=== PATIENT | female | born 2000 | race Caucasian/White ===

== ENCOUNTER 2020-10-21 15:41 | Emergency (ER) | payer OTHER, SELFPAY ==
[2020-10-21 15:57] VITALS: BP 121/82; PULSE 95; RESP 18; TEMP 36.6; O2SAT 96; BMI 39.8
[2020-10-21 16:39] VITALS: BP 138/78; PULSE 80; RESP 16; TEMP 36.1; O2SAT 100
--- NOTE | 2020-10-21 16:40 | PC.NURSE ---
PT ARRIVES TO POD, DENIES SI/HI AT THIS TIME. CALM & COOPERATIVE AT THIS TIME. AWAITING ED MD BUTLER.
[2020-10-21 17:02] LABS: Glucose Urine UA NEG (NEG); Leukocyte Esterase Urine 2+ (NEG); Nitrite Urine NEG (NEG); Specific Gravity - Urine 1.025 (1.005-1.025); Urine Blood TRACE (NEG); Urine Ketones NEG (NEG); Urine Protein NEG (NEG-TRACE)
[2020-10-21 17:03] LABS: Appearance Urine HAZY; Color Urine YELLOW
--- NOTE | 2020-10-21 17:18 | ED_ITS ---
HPI - Psych General Chief Complaint: Psychiatric Symptoms Stated Complaint: crisis Time Seen by Provider: 10/21/20 17:12 Source: patient Mode of arrival: ambulatory Limitations: no limitations History of Present Illness HPI Narrative: Patient comes to emergency room complaining of depression. Patient states that the depression is building up and she can not taking any longer. Patient states she is not suicidal or homicidal. Patient is not on any medications. 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 Patient states that at the age of 13, her mother decided that the patient did not need any therapy or medication. MD complaint: feels depressed Related Data Previous Rx's Medication Instructions Recorded hydroxyzine HCl 25 mg PO TID PRN #10 tab 10/21/20 nitrofurantoin monohyd/m-cryst 100 mg PO Q12H 7 Days #14 cap 10/21/20 [Macrobid] Allergies Allergy/AdvReac Type Severity Reaction Status Date / Time No Known Allergies Allergy Unverified 01/15/20 17:28 [No Known Allergies*] Review of Systems Review of Systems: Constitutional : No Weight loss, No Fever, No Chills, No Night Sweats, No Fatigue, No Malaise ENT/Mouth : No Hearing loss, No Ear Pain, No Nasal Congestion, No Sinus Pain, No Hoarseness, No sore throat, No Rhinorrhea, No Swallowing Difficulty Eyes: No Eye Pain, No Swelling, No Redness, No Foreign Body, No Discharge, No Vision Changes Cardiovascular : No Chest Pain, No SOB, No Dyspnea on Exertion, No Orthopnea, No Edema, No Palpitations Respiratory : No Cough, No Sputum, No Wheezing, No Smoke Exposure, No Dyspnea Gastrointestinal : No Nausea, No Vomiting, No Diarrhea, No Constipation, No abdominal Pain, No Hematochezia, No Melena Genitourinary : no irregular bleeding, No Dysuria, No Urinary Frequency, No Hematuria, No Urinary Incontinence, No Urgency, No Flank Pain, No Urinary Flow Changes, No Hesitancy Musculoskeletal : No joint pain, No Myalgias, No Joint Swelling Skin : No Skin Lesions, No rash Neuro : No Weakness, No Numbness, No Paresthesias, No Loss of Consciousness, No Dizziness, No Headache Psych : No Anxiety/Panic, complaining of Depression, No SI/HI/AH/VH, No Social Issues, Heme/Lymph: No Bruising, No Bleeding,No Lymphadenopathy Endocrine : No Polyuria, No Polydipsia, No Temperature Intolerance PMF Past Medical History Medical History (Updated 10/21/20 @ 19:17 by Rhonda Jorge MD) Depression Social History Social History Patient Tobacco Use Status: Never used Tobacco Use of substances other than those prescribed or required for medical reasons: No Advance Directives: No Advance Directives Information Provided: No Patient : No Physical Exam Vital Signs: Vital Signs: Last Vital Signs Temp 97.0 F 10/21/20 16:39 Pulse 80 10/21/20 16:39 Resp 16 10/21/20 16:39 BP 138/78 10/21/20 16:39 Pulse Ox 100 10/21/20 16:39 Body Mass Index 39.8 Appearance: Alert. Oriented X3. No acute distress. Eyes: Pupils equal, round and reactive to light. ENT: Pharynx normal. Neck: Normal inspection. Neck supple. No lymph nodes noted. No crepitus CVS: Normal heart rate and rhythm. Pulses normal. Normal S1 and S2 Respiratory: No respiratory distress. Breath sounds normal. No Wheezing. No rales Abdomen: Soft and nontender. No rigidity. No distention. good BS x4 Skin: Skin warm and dry. Normal skin color. Normal skin turgor. Extremities: No lower extremity edema. No lower extremity edema. No Lacerations. No Rash Neuro: Oriented X 3. No motor deficit. No sensory deficit. Moving all extermities. No slurred speech. Psych: Teary, normal speech, normal train of thought Course Course Course Narrative: Behavioral health network consult consult pending. Behavioral health network evaluated the patient, patient is not suicidal or homicidal. Patient will be discharged home, patient was giving information for support groups. Due to insurance issues, she does not qualify for outpatient treatment. She was given information to get a primary care physician, and that she can be referred to Psychology/Psychiatry. Patient is visiting from [place], she will be here for 1 more month, by the time her insurance becomes active, she will likely be back in [place]. Patient agrees with plan MDM - Psych Lab Data Labs: Lab Results 10/21/20 10/21/20 Range/Units 16:38 16:39 Urine Color YELLOW Urine Appearance HAZY Urine pH 6.0 (5.0-8.0) Ur Specific [place] 1.025 (1.005-1.025) Urine Protein NEG (NEG-TRACE) MG/DL Urine Glucose (UA) NEG (NEG) MG/DL Urine Ketones NEG (NEG) MG/DL Urine Blood TRACE (NEG) Urine Nitrite NEG (NEG) Ur Leukocyte Esterase 2+ H (NEG) Urine RBC 1-4 (0) /HPF Urine WBC 10-14 H (0-4) /HPF Ur Squamous Epith Cells 1+ /LPF Urine Bacteria 2+ /LPF Urine Opiates Screen Not Detected (Not Detect) Ur Barbiturates Screen Not Detected (Not Detect) Ur Phencyclidine Scrn Not Detected (Not Detect) Ur Amphetamines Screen Not Detected (Not Detect) U Benzodiazepines Scrn Not Detected (Not Detect) Urine Cocaine Screen Not Detected (Not Detect) U Marijuana (THC) Screen Not Detected (Not Detect) Discharge Plan Discharge Clinical Impression: Depression, UTI (urinary tract infection) Patient Disposition: Home, Self-Care Instructions: Urinary Tract Infection in Women (ED), Depression (ED) Additional Instructions: Please follow-up with your primary care physician tomorrow. If you have any worsening or new symptoms, please return to the emergency room or call 911 Prescriptions: New hydroxyzine HCl 25 mg tablet 25 mg PO TID PRN (Reason: itching) Qty: 10 RF: 0 nitrofurantoin monohyd/m-cryst [Macrobid] 100 mg capsule 100 mg PO Q12H 7 Days Qty: 14 RF: 0
[2020-10-21 17:22] LABS: Amphetamine Screen Urine Not Detected (Not Detect); Barbiturates, Urine Not Detected (Not Detect); Benzodiazepines Screen Urine Not Detected (Not Detect); Cannabinoid Screen Urine Not Detected (Not Detect); Cocaine Screen Urine Not Detected (Not Detect); Opiate Screen Urine Not Detected (Not Detect); Phencyclidine Screen Urine Not Detected (Not Detect)
[2020-10-21 17:23] LABS: Bacteria Urine 2+ /LPF; Squamous Epithelial Cell Urine 1+ /LPF
--- NOTE | 2020-10-21 18:01 | PC.NURSE ---
MOTHER MANJULA EDGAR [phone]
--- NOTE | 2020-10-21 19:02 | MHC.CARE ---
CARE Team met with Pt to provide support. Pt presented to the ED for depressive symptoms. Pt reports [place] back from [place] in June of 2020 and has been somewhat difficult for her. Pt reports she feels being around her parents and ?can?t be herself?. Pt and t/w discussed how this impacts her ability to interact with her and siblings. Pt reports her siblings not being able to relate to her childhood experience and de-validate her. Pt reports she plans on returning to [place] in [place] which she is looking forward to and will help her with her overall mental health. Pt denies current SI/HI/VH/AH. Pt has no history of IPLOC. Pt has history of therapy . CARE Team and Pt discussed benefits of therapy and psychiatry once Pt has health insurance. Pt provided with information for [facility] Crisis, outpatient providers and local resources. CARE Team encouraged Pt to follow up when she has insurance if she would like local referrals.
[2020-10-21 19:14] LABS: COVID-19 Test Negative (Negative)
[2020-10-21 19:34] LABS: UPreg QC Valid YES; Urine Pregnancy NEGATIVE (NEGATIVE)
== END 2020-10-21 19:31 | disposition home or self-care (01) ==
PROVIDERS: Emergency Provider Emergency Medicine
DX: F32.9 Major depressive disorder, single episode, unspecified (principal); N39.0 Urinary tract infection, site not specified; Z20.822 Contact with and (suspected) exposure to COVID-19
CPT/HCPCS: 36415; 80307; 81001; 81003; 81025; 87635; 99283; 99284